=== PATIENT | female | born 1980 | race Two or more races ===

== ENCOUNTER 2017-08-08 16:02 | Emergency (ER) | payer SELFPAY ==
[~2017-08-08] VITALS: Ht 175.3 cm; Wt 81.6 kg
[2017-08-08 16:15] VITALS: BP 175/81
[2017-08-08] MEDS ORDERED: HYDROcodone-ACET 5/325MG TAB PO ONE (17:30)
== END 2017-08-08 17:44 | disposition home or self-care (01) ==
LOC: EDBD 16:02 → ER 16:02
DX: S00.83XA Contusion of other part of head, initial encounter (principal); S50.01XA Contusion of right elbow, initial encounter; S80.01XA Contusion of right knee, initial encounter; S80.02XA Contusion of left knee, initial encounter; V49.59XA Passenger injured in collision with other motor vehicles in traffic accident, initial encounter; Y93.89 Activity, other specified; Y99.8 Other external cause status; Y92.410 Unspecified street and highway as the place of occurrence of the external cause
CPT/HCPCS: 70450